=== PATIENT | male | born 2000 | race Caucasian/White ===

== ENCOUNTER 2021-12-04 20:10 | Emergency (ER) | payer BC, MEDICAID ==
[~2021-12-04] VITALS: Ht 172.7 cm; Wt 56.7 kg
[2021-12-04] MEDS ORDERED: PRAZOSIN HCL1 MG PO (20:31)
[2021-12-04 22:22] LABS: HEMATOCRIT 43.1 % (42.0-52.0); MEAN CELL VOLUME 84.5 fl (80.0-94.0); MEAN CORPUSCULAR HGB 29.8 pg (27.0-31.0); MEAN CORPUSCULAR HGB CONC 35.3 g/dl (33.0-37.0); MEAN PLATELET VOLUME 10.2 fl (9.6-12.3); PLATELET COUNT AUTOMATED 114 10*3/uL (130-400); RED CELL DISTRI WIDTH 13.8 % (0-14.5); WHITE BLOOD COUNT 15.7 10*3/uL (4.8-10.8)
[2021-12-04 22:27] LABS: MANUAL DIFF REFLEX YES
[2021-12-04 22:55] LABS: TOTAL CELLS COUNTED 100 #CELLS
[2021-12-04 22:56] LABS: PLATELET SUFFICIENCY LOW (NORMAL)
[2021-12-04 22:57] LABS: ALKALINE PHOSPHATASE 60 U/L (45-117); BUN 8 mg/dl (7-24); CHLORIDE 109 mmol/L (98-107); CREATININE 0.88 mg/dL (0.70-1.30); POTASSIUM 3.4 mmol/L (3.5-5.1); SGOT/AST 20 IU/L (3-35); SGPT/ALT 21 U/L (12-78); SODIUM 143 mmol/L (136-145); TOTAL PROTEIN 7.5 gm/dL (6.4-8.2)
[2021-12-04 23:00] LABS: BILIRUBIN Negative (Negative); BLOOD Negative (Negative); CLARITY Clear (Clear); COLOR Yellow (Yellow); GLUCOSE Negative (Negative); KETONE 2+ (Negative); LEUKO ESTERASE Trace (Negative); NITRITE Negative (Negative); PH 7.5 (4.5-8.0); SPECIFIC GRAVITY >= 1.030 (1.001-1.030)
[2021-12-04 23:18] LABS: BACTERIA 1+
[2021-12-05] MEDS ORDERED: AMOXICILLIN500 M2 PO (00:14)
[2021-12-10 11:00] LABS: ATYPICAL LYMPHS 20 % (0-0); BLASTS 1 % (0-0)
== END 2021-12-05 00:23 | disposition home or self-care (01) ==
LOC: ED 20:10
PROVIDERS: Nurse Practitioner
DX: J02.0 Streptococcal pharyngitis (principal); Z20.822 Contact with and (suspected) exposure to COVID-19; N39.0 Urinary tract infection, site not specified; E87.6 Hypokalemia

== ENCOUNTER 2022-07-21 17:50 | Emergency (ER) | payer MEDICAID ==
[~2022-07-21] VITALS: Wt 56.7 kg
[~2022-07-21 17:50] MED LIST: AMOXICILLIN500 M2 PO; PRAZOSIN HCL1 MG PO
== END 2022-07-21 18:47 | disposition home or self-care (01) ==
LOC: ED 17:50
DX: S61.212A Laceration without foreign body of right middle finger without damage to nail, initial encounter (principal); W26.8XXA Contact with other sharp object(s), not elsewhere classified, initial encounter; Y93.89 Activity, other specified; Y92.89 Other specified places as the place of occurrence of the external cause; Y99.8 Other external cause status